=== PATIENT | male | born 1990 | race Two or more races ===

== ENCOUNTER 2024-12-25 17:52 | Emergency (ER) | payer OTHER ==
[~2024-12-25] VITALS: Ht 162.6 cm; Wt 106.6 kg
[2024-12-25] MEDS ORDERED: CEFTRIAXONE 500 MG VIAL ONE (19:20)
[2024-12-25] MEDS ORDERED: PENICILLIN G BENZATHINE 2.4 MMU/4 ML ML IM ONE (19:21)
[2024-12-25] MEDS ORDERED: LIDOCAINE 1% INJ 50 ML MDV IJ ONE (19:22)
[2024-12-25] MEDS ORDERED: CLOT15CR27 TP (19:32)
[2024-12-25] MEDS ORDERED: DOXY100C2 PO (19:32)
[2024-12-25] MEDS ORDERED: MUPI15CR TP (19:32)
[2024-12-25] MEDS: PENICILLIN G BENZATHINE 2.4 MMU/4 ML ML IM ONE (19:39)
[2024-12-25] MEDS: CEFTRIAXONE 500 MG VIAL IM ONE (19:39)
[2024-12-25 19:50] VITALS: BP 141/69; TEMP 97.9; O2SAT 98
[2024-12-25 20:10] LABS: APPEARANCE,URINE CLEAR (CLEAR); BILIRUBIN,URINE NEGATIVE (NEGATIVE); BLOOD, URINE TRACE-INTA Ery/uL (NEGATIVE); COLOR,URINE YELLOW (YELLOW); KETONES,URINE 1+ mg/dL (NEGATIVE); LEUKOCYTE ESTERASE ,URINE NEGATIVE (NEGATIVE); NITRITE, URINE NEGATIVE (NEGATIVE); PROTEIN,URINE 2+ mg/dl (NEGATIVE); UGLUCOSE 3+ mg/dL (NEGATIVE)
[2024-12-25 20:33] LABS: ADD URINE CULTURE NO; BACTERIA,URINE Few /HPF (None Seen); RBC,URINE 0-2 /HPF (0-2); SQUAMOUS EPITHELIAL CELL,UR Few /HPF (None Seen)
[2024-12-26 18:10] LABS: HIV-1 p24 ANTIGEN NON REACTIVE (NONREACTIVE); HIV-1/2 ANTIBODY NON REACTIVE (NONREACTIVE)
[2024-12-27 06:07] LABS: RAPID PLASMA REAGIN QUAL. Non Reactive (Non Reactive)
[2024-12-28 05:10] LABS: CHLAMYDIA TRACHOMATIS NAA Negative (Negative); NEISSERIA GONORRHOEAE NAA Negative (Negative)
== END 2024-12-25 19:51 | disposition home or self-care (01) ==
LOC: ER 18:06
DX: A63.0 Anogenital (venereal) warts (principal); N48.1 Balanitis; F19.10 Other psychoactive substance abuse, uncomplicated; Z59.00 Homelessness unspecified
CPT/HCPCS: 99284; 86593; 86592; 96372 ×2; 81001; 36415; 87806; 87491 ×2; 87591; J0558; J3490; J0696